=== PATIENT | male | born 1975 | race Caucasian/White ===

== ENCOUNTER 2020-02-12 16:09 | Inpatient (IN) | payer BC ==
[~2020-02-12] VITALS: Ht 172.7 cm; Wt 68.0 kg
[2020-02-12 16:20] LABS: URINE BILIRUBIN NEGATIVE (Negative); URINE BLOOD TRACE (Negative); URINE CLARITY CLEAR; URINE COLOR YELLOW; URINE GLUCOSE-RANDOM* NEGATIVE (Negative); URINE KETONES NEGATIVE (Negative); URINE LEUKOCYTES-REFLEX NEGATIVE (Negative); URINE NITRITE-REFLEX NEGATIVE (Negative); URINE PROTEIN (DIPSTICK) NEGATIVE (Negative); URINE UROBILINOGEN 0.2 E.U./dl (0.2-1.0)
[2020-02-12 16:21] VITALS: BP 124/85
[2020-02-12 16:48] LABS: ABSOLUTE NEUTROPHILS 7.1 thou/uL (1.4-8.2); BASOPHILS 1.1 % (0.0-2.0); EOSINOPHILS 2.2 % (0.0-3.0); HEMATOCRIT 39.6 % (42.0-52.0); HEMOGLOBIN 13.7 gm/dL (14.0-18.0); LYMPHOCYTES 18.7 % (24.0-44.0); MCH 31.6 pg (26.0-34.0); MCHC 34.7 g/dL (28.0-37.0); MCV 91.2 fL (80.0-100.0); MONOCYTES 9.3 % (1.0-8.0); PLATELET COUNT 223 thou/uL (150-400); POLYS 68.7 % (36.0-66.0); RBC 4.34 mil/uL (4.50-6.00); RDW 12.9 % (10.5-14.5); WBC 10.4 thou/uL (4.0-11.0)
[2020-02-12 16:57] LABS: ANION GAP 4 mmol/L (7-16); BUN 7 mg/dL (7-18); CALCIUM 8.9 mg/dL (8.5-10.1); CHLORIDE 102 mmol/L (98-107); CO2 31 mmol/L (21-32); GLUCOSE 96 mg/dL (74-106); POTASSIUM 3.9 mmol/L (3.5-5.1); SODIUM 137 mmol/L (136-145)
[2020-02-12 17:03] LABS: ALBUMIN 3.2 g/dL (3.4-5.0); DIRECT BILIRUBIN < 0.1 mg/dL (<0.1-0.2); LIPASE 97 U/L (73-393); MAGNESIUM 2.1 mg/dL (1.8-2.4); SGOT 10 U/L (15-37); SGPT 13 U/L (30-65); TOTAL BILIRUBIN 0.4 mg/dL (0.2-1.0); TOTAL PROTEIN 6.7 g/dL (6.4-8.2)
[2020-02-12 18:36] VITALS: BP 124/85
[2020-02-12 19:11] VITALS: BP 112/76
[2020-02-12 19:50] VITALS: BP 131/73
--- NOTE | 2020-02-13 00:40 | NUR ---
PT TO UNIT AROUND 1929. ORIENTED TO UNIT, STAFF AND USE OF CALL LIGHT. ADMISSION COMPLETED, CONSENTS SIGNED AND ORDERS IMPLEMENTED. PT IS A&OX4, UP AD GILLIAN AND INDEPENDENT. REPORTS PAIN 01/24, MANAGED WITH PO MEDICATION. FLUIDS INFUSING PER ORDER. NPO SINCE MIDNIGHT FOR SURGERY TOMORROW WITH DR YANG. JEISON. PT REPORTS NO MEDICAL HX AND TAKES NO MEDICATION AT HOME. CURRENTLY RESTING IN BED WITH EYES CLOSED. CALLS APPROPRIATELY WITH NEEDS.
[2020-02-13 04:35] VITALS: BP 113/68
[2020-02-13 07:56] VITALS: BP 123/75
[2020-02-13] MEDS ORDERED: MIRALAX17 GM PO (13:22)
[2020-02-13] MEDS ORDERED: IBUPROFEN 200200 M1 PO (13:22)
[2020-02-13] MEDS ORDERED: OXYCODONE HCL 55 MG PO (13:22)
[2020-02-13] MEDS ORDERED: COLACE 100 MG100 MG PO (13:22)
[2020-02-13] MEDS ORDERED: ACETAMINOPHEN325 M1 PO (13:22)
--- NOTE | 2020-02-13 15:45 | NUR ---
chart review, pt cont be out of room for test/procedure. will cont following as needed for dc needs.
[2020-02-13 16:05] VITALS: BP 123/75
[2020-02-13 16:28] VITALS: BP 135/52
[2020-02-13 16:45] VITALS: BP 124/90
[2020-02-13 17:44] VITALS: BP 125/77
--- NOTE | 2020-02-13 18:02 | NUR ---
Assumed care of pt. at 0700. Pt. is calm and awaiting surgery. NPO status maintained. Pt. was stable post-op and feels well enough to be discharged. Pt. was able to hold down small amount of super without regurgitating. Education and perscription provided.
--- NOTE | 2020-02-13 19:51 | NUR ---
ASSUMED PT CARE AT 1600. POST OP VITALS STABLE.PT ATE SOME OF HIS DINNER,WAS ABLE TO KEEP THE FOOD DOWN. AT BEDSIDE.PT WAS DISCHARGED PER HIS REQUEST AT 1800.PT HAS 3 LAP SITES COVERED WITH DERMABOND & ONE WITH TELFA & TEGADERM. PT LEFT IN THE COMPANY OF HIS AND ALL HIS PERSONAL BELONGINGS.
--- NOTE | 2020-02-15 16:06 | PATH ---
[facility] [place] [address] PATHOLOGY RPT PROCEDURE Name: MARÍA WEBBER Room #: 440-P [facility] M.R.#: [id number] Admission: 02/12/20 Date of : 77 Discharge: 02/13/20 Report #: [id number] Path Case #: [id number] [facility] Accession Number: [id number] . 01 Material submitted: . gallbladder - GALLBLADDER . 01 Clinical history: . Acute cholecystitis . 02 Diagnosis: Gallbladder, cholecystectomy: - Moderate acute and gangrenous cholecystitis associated with extensive ulceration. - Cholelithiasis. - Mild acute focal serositis. . (IUV:mml; 02/15/2020) QLM 02/15/2020 1304 Local . 02 Electronically signed: . Swapna Dunaway MD, Pathologist NPI- [id number] . 01 Gross description: . The specimen is received in formalin, labeled "da Urban". Received is a previously opened gallbladder measuring 9.6 x 4.1 x 2.9 cm in greatest dimensions displaying a pink-chapman, shaggy serosal surface. Opening the specimen reveals a velvety, light brown mucosa with a gallbladder wall thickness of 0.1 cm. Calculi are present displaying a yellow-green and multinodular to smooth appearance, and no masses or lesions are noted grossly. Service Line Layer sections, to include the proximal margin, are submitted in cassette A1. (CAA; 02/14/2020) QAC/QA 02/14/2020 1102 Local . 02 Pathologist provided ICD-10: K80.10, K65.8 . 02 CPT . 609111 Specimen Comment: A courtesy copy of this report has been sent to [phone] Specimen Comment: Report sent to Performed at: [address], [place] [id number] MD Yayo Holt MD Phone: [phone] [place] [address] [place] [address] PATHOLOGY RPT PROCEDURE Name: MARÍA WEBBER Room #: [facility] M.R.#: [id number] Admission: 02/12/20 Date of : 77 Discharge: 02/13/20 Report #: [id number] Path Case #: [id number] Performed at: [address] [facility] [place] [id number] MD Swapna Dunaway MD Phone: [phone]
== END 2020-02-13 18:00 | disposition home or self-care (01) | DRG 419 ==
LOC: ER 16:09 → 4S 17:23 → EROBS 17:23 → 4S 19:21
PROVIDERS: Emergency Medicine; ADMIT Surgery; ATTEND Surgery
PROC: 0FT44ZZ Resection of Gallbladder, Percutaneous Endoscopic Approach (ICD-10-PCS; principal; 2020-02-13)
DX: K80.12 Calculus of gallbladder with acute and chronic cholecystitis without obstruction (principal); F17.200 Nicotine dependence, unspecified, uncomplicated; Z72.89 Other problems related to lifestyle; Z03.818 Encounter for observation for suspected exposure to other biological agents ruled out
CPT/HCPCS: 10100; 10102; 50010; 50101; 50249; 50411; 50555; 50558; 51489; 52265; 52266; 53307; 53310; 53312; 54022; 54118; 55245; 56462; 56525; 56526; 62110; 62900; 70005